=== PATIENT | female | born 1970 | race Caucasian/White ===

== ENCOUNTER 2024-01-12 04:24 | Day surgery (SDC) | payer BC ==
[2024-01-10 13:36] VITALS: BMI 27.2
[2024-01-12] MEDS ORDERED: MIDAZOLAM HCL 2 MG/2 ML SINGLE DOSE VIAL ONE (10:19)
[2024-01-12] MEDS ORDERED: ONDANSETRON 4 MG/2 ML VIAL IVPUSH PRN (10:21)
[2024-01-12] MEDS ORDERED: PROPOFOL 20 ML ONE (10:26)
[2024-01-12] MEDS: LACTATED RINGERS SOLUTION 1,000 ML IV SCH (12:02)
[2024-01-12 12:18] VITALS: TEMP 97.3
[2024-01-12 12:34] VITALS: RESP 20
[2024-01-12 13:53] VITALS: BP 134/71; PULSE 54
== END 2024-01-12 13:48 | disposition home or self-care (01) ==
LOC: JASU-SURG 04:24
PROVIDERS: ATTEND Obstetrics & Gynecology Obstetrics
PROC: 0UB98ZZ Excision of Uterus, Via Natural or Artificial Opening Endoscopic (ICD-10-PCS; principal; 2024-01-12 10:00)
DX: N84.0 Polyp of corpus uteri (principal); D25.9 Leiomyoma of uterus, unspecified
CPT/HCPCS: 81025; 88305-TC; 94760